=== PATIENT | female | born 1995 | race Hispanic/Latino ===

== ENCOUNTER 2021-09-02 13:40 | Outpatient (CLI) | payer BC, OTHER ==
[2021-09-03 00:37] LABS: SARS-CoV-2 PCR by NAA Not Detected (NotDetected)
== END 2021-09-02 13:41 | disposition home or self-care (01) ==
LOC: CSHLAB 13:40
PROVIDERS: ATTEND Obstetrics & Gynecology
DX: Z01.812 Encounter for preprocedural laboratory examination (principal); Z20.822 Contact with and (suspected) exposure to COVID-19
CPT/HCPCS: U0003; U0005

== ENCOUNTER 2021-09-04 08:29 | Inpatient (IN) | payer BC, MEDICAID ==
[2021-09-04 10:08] VITALS: BMI 31.7
[2021-09-04] MEDS ORDERED: Lactated Ringer's 1,000 ML IV SCH ×2 (10:15)
[2021-09-04] MEDS ORDERED: Ibuprofen 800 MG TAB PO PRN (10:15)
[2021-09-04] MEDS ORDERED: HYDROcodone/Acetaminophen 5/325 mg Tablet PO PRN ×3 (10:15→14:55)
[2021-09-04] MEDS ORDERED: NS w/ Oxytocin 30 units 500 ML IV SCH ×2 (10:15→15:00)
[2021-09-04] MEDS ORDERED: hydrALAZINE 20 MG/ML VIAL SLOW IVP PRN ×2 (10:15→14:55)
[2021-09-04] MEDS ORDERED: Butorphanol Tartrate 1 MG/ML VIAL SLOW IVP PRN (10:15)
[2021-09-04] MEDS ORDERED: Ondansetron PF 4 MG/2 ML Vial IVP PRN ×2 (10:15→14:55)
[2021-09-04] MEDS ORDERED: Lidocaine 1% (PF) 30 ML VIAL SC PRN (10:15)
[2021-09-04 10:36] LABS: Hemoglobin 12.2 g/dL (12.0-15.5); Mean Corpuscular HGB CONC 34.6 g/dL (32.0-36.0); Mean Corpuscular Hemoglobin 32.7 pg (27.0-33.0); Mean Corpuscular Volume 94.6 fl (81.6-98.3); Mean Platelet Volume 11.5 fl (7.4-10.4); Platelet Count 183 10x3/uL (150-450); RBC Distribution Width 12.1 % (11.5-14.5); Red Blood Cell (RBC) Count 3.73 10x6/uL (3.90-5.03); White Blood Cell (WBC) Count 7.5 10x3/uL (3.5-10.5)
[2021-09-04 11:11] LABS: HIV (1/2) Antibody/Antigen Non-Reactive (NonReactive); HIV 1/2 INDEX 0.05 S/CO (<1.00); Hep B Surf Ag Non-Reactive S/CO (NonReactive); Syphilis Antibody Nonreactive (Nonreactive); Syphilis Antibody Index 0.03 S/CO (<1.00 Non-Reactive)
[2021-09-04 11:14] LABS: HBSAg Index 0.16 S/CO (0-0.99)
[2021-09-04] MEDS ORDERED: Boostrix 0.5 ML (Tdap) VIAL IM ONE (14:55)
[2021-09-04] MEDS ORDERED: Promethazine HCl 25 MG/ML VIAL IM PRN (14:55)
[2021-09-04] MEDS ORDERED: Lanolin Ointment 7 GM TUBE TOP PRN (14:55)
[2021-09-04] MEDS ORDERED: Milk Of Magnesia 30 ML UDCUP PO PRN (14:55)
[2021-09-04] MEDS ORDERED: Zolpidem Tartrate 5 MG TAB PO PRN (14:55)
[2021-09-04] MEDS ORDERED: Misoprostol 200 MCG TAB VAG PRN (14:55)
[2021-09-04] MEDS ORDERED: Preparation H Ointment 28 GM TUBE PR PRN (14:55)
[2021-09-04] MEDS ORDERED: Bisacodyl 10 MG SUPP PR PRN (14:55)
[2021-09-04] MEDS ORDERED: Benzocaine-Menthol 82.5 ML CAN TOP PRN (14:55)
[2021-09-04] MEDS ORDERED: diphenhydrAMINE 25 MG CAP PO PRN (14:55)
[2021-09-04] MEDS ORDERED: Ibuprofen 800 MG TAB PO SCH ×3 (19:15→22:00)
[2021-09-05 00:37] LABS: SARS-CoV-2 PCR by NAA Not Detected (NotDetected)
[2021-09-05] MEDS ORDERED: Acetaminophen 325 MG TAB PO PRN (02:28)
[2021-09-05] MEDS: Docusate Calcium (SURFAK) 240 MG CAP PO SCH ×2 (02:47→09:16)
[2021-09-05] MEDS: Ibuprofen 800 MG TAB PO PRN ×2 (06:38→15:46)
[2021-09-05] MEDS: Ferrous Sulfate 325 MG TAB PO SCH ×2 (07:04→09:15)
[2021-09-05] MEDS ORDERED: Prenatal Vitamin 1 TAB PO SCH (09:00)
[2021-09-05 11:28] VITALS: BP 109/64; TEMP 98.1
== END 2021-09-05 18:15 | disposition home or self-care (01) | DRG 807 ==
LOC: CSHLD/OP 08:29 → CSHLD 10:00 → CSHPP 21:02
PROVIDERS: ADMIT Obstetrics & Gynecology; ATTEND Obstetrics & Gynecology
PROC: 10D07Z6 Extraction of Products of Conception, Vacuum, Via Natural or Artificial Opening (ICD-10-PCS; principal; 2021-09-04)
PROC: 0HQ9XZZ Repair Perineum Skin, External Approach (ICD-10-PCS; 2021-09-04)
DX: O76 Abnormality in fetal heart rate and rhythm complicating labor and delivery (principal); Z37.0 Single live birth; Z20.822 Contact with and (suspected) exposure to COVID-19; Z3A.38 38 weeks gestation of pregnancy; O70.0 First degree perineal laceration during delivery
CPT/HCPCS: 51702; 85027; 86780; 86850; 86900; 86901; 87340; 87389; 99285; J0595; U0003; U0005